=== PATIENT | male | born 1950 | race American Indian/Alaskan Native ===

== ENCOUNTER 2018-02-26 06:38 | Day surgery (SDC) | payer OTHER, BC ==
[2018-02-25 13:51] VITALS: BMI 28.2
[2018-02-26 08:41] VITALS: TEMP 97.8
[2018-02-26 09:12] VITALS: BP 126/71; PULSE 78
--- NOTE | 2018-02-27 16:45 | PATH ---
Surgical Pathology Report Patient Name: PALOMA NGO Med. Rec. #: [id number] /Age/Gender: 1950 (Age: 67) / M Account: [id number] Location: [facility] Taken: 02/26/2018 Received: 02/26/2018 Reported: 02/27/2018 Physicians: Meseret Rojas M.D. Specimen(s) Received BX RECTAL POLYPS Clinical History Preoperative diagnosis: Screening Postoperative diagnosis: Polyps Final Diagnosis COLON, RECTUM, BIOPSY: HYPERPLASTIC POLYP. Electronically Signed Phani Bajwa M.D. Gross Description Received in formalin, labeled "biopsy rectal polyps" are 3 ortega, irregular portions of soft tissue ranging from 0.2-0.3 cm. in greatest dimension. The specimens are submitted in toto in one cassette. 02/26/201802/26/2018
== END 2018-02-26 09:30 | disposition home or self-care (01) ==
LOC: JASU-ENDO 06:38
PROVIDERS: ATTEND Internal Medicine Gastroenterology
PROC: 0DBP8ZX Excision of Rectum, Via Natural or Artificial Opening Endoscopic, Diagnostic (ICD-10-PCS; principal; 2018-02-26 08:00)
DX: Z12.11 Encounter for screening for malignant neoplasm of colon (principal); K62.1 Rectal polyp; I10 Essential (primary) hypertension; E11.9 Type 2 diabetes mellitus without complications; J45.909 Unspecified asthma, uncomplicated
CPT/HCPCS: 88305-TC

== ENCOUNTER 2018-09-05 10:11 | Day surgery (SDC) | payer OTHER, BC ==
[2018-09-04 10:46] VITALS: BMI 27.4
--- NOTE | 2018-09-05 09:34 | HP ---
History & Physical Update - History History: No Change - Physical Physical: No Change - Assessment Assessment: No Change - Plan Plan: No Change (Mass in right arm for excision.)
[2018-09-05 11:00] VITALS: TEMP 97.5
[2018-09-05] MEDS ORDERED: LIDOCAINE HCL 1%, 10 MG/ML (20ML VIAL) ONE (11:48)
[2018-09-05] MEDS ORDERED: MIDAZOLAM HCL 2 MG/2 ML SINGLE DOSE VIAL ONE (11:59)
[2018-09-05] MEDS ORDERED: ceFAZolin SODIUM 1 GM VIAL ONE (12:21)
[2018-09-05] MEDS ORDERED: LIDOCAINE HCL 1%, 10 MG/ML (20ML VIAL) INF ONE (12:34)
[2018-09-05] MEDS ORDERED: oxyCODONE HCL 5 MG TABLET PO PRN (12:54)
[2018-09-05] MEDS ORDERED: ONDANSETRON 4 MG/2 ML VIAL IVPUSH PRN (12:54)
--- NOTE | 2018-09-05 12:54 | OP ---
Operative Note - Note: Operative Date: 09/05/18 Pre-Operative Diagnosis: Two pigmented skin lesions on right arm. Operation: Excision of 1) 4cm.x2cm pigmented skin lesion , right arm , lateral aspect,. 2) 3cm.x1cm skin lesion on medial aspect right arm. Findings: Pigmented skin lesion x2 , right arm. Post-Operative Diagnosis: Same as Pre-op Surgeon: Stephanie Pham Anesthesiologist/RADIO TELEVISION TECHNICAL DIRECTOR: Jesse Lyon Anesthesia: MAC Specimens Removed: Pigmented skin lesions,. 1) lateral aspect right arm , 4x3cm ,. 2) medial aspect right arm 3x2 cm. Estimated Blood Loss (mls): 5 Operative Report Dictated: Yes
[2018-09-05 15:16] VITALS: BP 117/80; PULSE 74
--- NOTE | 2018-09-06 07:37 | OP ---
DATE OF OPERATION: 09/05/2018 PREOPERATIVE DIAGNOSIS: Two pigmented skin lesions on the right arm. POSTOPERATIVE DIAGNOSIS: Two pigmented skin lesions on the right arm. OPERATIVE PROCEDURE: 1. Excision of 4 cm x 2 cm pigmented skin lesion of the right arm on its lateral aspect. 2. Excision of 3 cm x 1 cm skin lesion on medial aspect of the right arm. SURGEON: Katrin Pham MD ANESTHESIA: Local with monitored intravenous sedation. ANESTHESIOLOGIST: Jesse Lyon MD OPERATIVE DESCRIPTION: Patient had 2 pigmented skin lesions close to each other on the right arm. Site was marked, identified, while the patient was awake. The patient was given general anesthesia. The right arm was painted and draped. Time-out was called. Lidocaine 1% was injected into both the lesions and surrounding it. First the incision on the lateral side was excised by making an elliptical incision around the lesion about 4 cm in length x 2 cm in width with the adequate margin around the pigmented area. This was carried through the skin down to the subcutaneous tissue, excised, sent to Pathology. Hemostasis was achieved using electrocautery. The subdermal layer was approximated with interrupted 3-0 Vicryl sutures and skin approximated with continuous 4-0 Biosyn sutures in a running subcuticular fashion. Hemostasis was satisfactory. Specimen was labeled at the lateral margin and sent to Pathology. Next, the lesion medial to it was excised. Again after infiltrating lidocaine, an elliptical incision in longitudinal fashion was made about 3 cm in length and about 1 cm in width. This was carried again down through the skin to the subcutaneous fat, completely excised with adequate margin, and sent to Pathology. Hemostasis was again achieved using electrocautery. The dermal layer and subcutaneous tissues were approximately by interrupted 3-0 Vicryl sutures, and skin approximated with continuous 4-0 Biosyn sutures in a running subcuticular fashion. Benzoin was applied across the skin edges, and Steri- Strips were placed across the skin. An Opsite was applied. Patient tolerated the procedure well and was sent to the ambulatory suite in satisfactory and stable condition. Ever [id number] MTDD
--- NOTE | 2018-09-09 14:07 | PATH ---
Surgical Pathology Report Patient Name: PALOMA NGO [facility]. Rec. #: [id number] /Age/Gender: 1950 (Age: 68) / M Account: [id number] Location: [facility] SURGICAL Taken: 09/05/2018 Received: 09/05/2018 Reported: 09/09/2018 Physicians: Katrin Pham M.D. Specimen(s) Received A: RIGHT ARM LATERAL LESION B: RIGHT ARM MEDIAL LESION Clinical History Disorder of pigmentation right upper arm Final Diagnosis A. RIGHT ARM LATERAL LESION, EXCISION: SEGMENT OF SKIN WITH FOLLICULAR CYST, INFLAMED. B. RIGHT ARM MEDIAL LESION, EXCISION: SEGMENT OF SKIN WITH SEBORRHEIC KERATOSIS. Electronically Signed Lencho Carreno M.D. Gross Description A. Received in formalin labeled "right arm lateral lesion," is a 1.3 x 0.7 cm is a ortega, elliptical, unoriented portion of skin excised to depth of 0.6 cm. No discrete epidermal lesion is identified. The specimen is inked blue and serially sectioned. Sectioning reveals a brown, possible cystic structure. The specimen is entirely submitted in 2 cassettes as follows: 1-undesignated tips; 2-central portion of specimen. B. Received in formalin labeled "right arm medial lesion," is a 0.9 x 0.4 cm ortega-brown, elliptical, unoriented portion of skin excised to a depth of 0.6 cm. No discrete dermal lesion is identified. The specimen is inked blue and quadrasected. The specimen is entirely submitted in 2 cassettes as follows: 1-undesignated tips; 2-central portion of specimen. /09/05/2018 saudi09/05/2018
== END 2018-09-05 14:20 | disposition home or self-care (01) ==
LOC: JASU-SURG 10:11
PROVIDERS: ATTEND Specialist
PROC: 0HBHXZX Excision of Right Upper Leg Skin, External Approach, Diagnostic (ICD-10-PCS; 2018-09-05)
PROC: 0HQBXZZ Repair Right Upper Arm Skin, External Approach (ICD-10-PCS; principal; 2018-09-05 11:30)
DX: L81.9 Disorder of pigmentation, unspecified (principal); L72.9 Follicular cyst of the skin and subcutaneous tissue, unspecified; L82.1 Other seborrheic keratosis
CPT/HCPCS: 82962; 88304-TC; 88305-TC

== ENCOUNTER 2019-07-25 11:51 | Emergency (ER) | payer OTHER, BC ==
[2019-07-25 11:55] VITALS: BP 120/61; PULSE 85; TEMP 97.7; BMI 27.4
[2019-07-25] MEDS ORDERED: ACETAMINOPHEN 500 MG TABLET (FP) PO ONE (12:21)
[2019-07-25] MEDS ORDERED: ACETAMINOPHEN 500 MG TABLET (FP) ONE (12:22)
--- NOTE | 2019-07-25 12:24 | PDOC ---
History of Present Illness - General Chief Complaint: Pain Stated Complaint: RT FOOT PAIN Time Seen by Provider: 07/25/19 11:58 History Source: Patient Exam Limitations: No Limitations - History of Present Illness Initial Comments: 07/25/19 12:21 HISTORY OF PRESENT ILLNESS: This 69-year-old man past medical history of diabetes and hypertension who presents emergency department for evaluation of right ankle pain status post inversion injury which happened yesterday. Patient reports was walking on the stairs when his sneaker fell off causing him to miss a step and landed awkwardly on his right ankle. Reports inversion of the right foot and had swelling immediately upon the injury. Patient has been ambulatory on his ankle since the injury. Patient's been taking [id number] Advil with relief of pain. No recent travel or sick contacts. PAST MEDICAL HISTORY: see HPI SURGICAL HISTORY: Denies ALLERGIES: No known drug allergies REVIEW OF SYSTEMS General/Constitutional: Denies fever or chills. Denies weakness, weight change. HEENT: Denies change in vision. Denies ear pain or discharge. Denies sore throat. Cardiovascular: Denies chest pain or shortness of breath. Respiratory: Denies cough, wheezing, or hemoptysis. Gastrointestinal: Denies nausea, vomiting, diarrhea or constipation. Denies rectal bleeding. Genitourinary: Denies dysuria, frequency, or change in urination. Musculoskeletal: see HPI Skin and breasts: Denies rash or easy bruising. Neurologic: Denies headache, vertigo, loss of consciousness, or loss of sensation. Psychiatric: Denies depression or anxiety. Endocrine: Denies increased thirst. Denies abnormal weight change. Hematologic/Lymphatic: Denies anemia, easy bleeding, or history of blood clots. Allergic/Immunologic: Denies hives or skin allergy. Denies latex allergy. PHYSICAL EXAM General Appearance: Well-appearing, appropriately dressed. No apparent distress , no intoxication. Respiratory/Chest: Lungs CTAB. No shortness of breath, chest tenderness, respiratory distress, accessory muscle use. No crackles, rales, rhonchi, stridor , wheezing, dullness Cardiovascular: RRR. S1, S2. No JVD, murmur, bradycardia, tachycardia. Vascular Pulses: Dorsalis-Pedis (R): 2+, Dorsalis-Pedis (L): 2+ Musculoskeletal/Extremities: No bony tenderness, crepitus, deformity or step offs present to bones of the right lower leg and foot. Swelling present over the lateral malleolus of the right ankle. Full active range of motion with flexion and dorsiflexion of the right ankle. No sensory loss distal to injury. Capillary refill less than 2 seconds. Integumentary: Appropriate color, dry, warm. No cyanosis, erythema, jaundice or rash Neurologic: general cleaner II-XII intact. Fully oriented, alert. Appropriate mood/affect. Motor strength 5/5. No appreciable EOM palsy, facial droop or sensory deficit. Past History - Past Medical History Allergies/Adverse Reactions: Allergies Allergy/AdvReac Type Severity Reaction Status Date / Time No Known Drug Allergies Allergy Verified 07/25/19 11:54 Home Medications: Ambulatory Orders Lisinopril [Prinivil] 5 mg PO DAILY #7 tablet 11/03/12 Tadalafil [Cialis] 5 mg PO DAILY #7 11/03/12 Albuterol Sulfate [Proair Hfa -] 1 - 2 inh PO PRN PRN 12/09/15 Budesonide/Formeterol Fumarate [SYMBICORT 80/4.5mcg -] 1 inh PO BID 12/09/15 Fenofibrate Nanocrystallized [Tricor] 145 mg PO DAILY 12/09/15 [place]-3 Acid Ethyl Esters [Lovaza -] 2 gm PO BID 12/09/15 Montelukast Na [Singulair -] 10 mg PO HS 12/13/15 Tamsulosin HCl [Flomax -] 0.4 mg PO DAILY 12/13/15 Sitagliptin Phos/Metformin HCl [Janumet 50-1,000 mg Tablet] 1 tab PO BID Tiotropium [place] [Spiriva] 1 inh PO DAILY PRN 01/16/16 Atorvastatin Ca [Lipitor] 40 mg PO HS 09/04/18 metFORMIN HCL [Metformin HCl ER] 1,000 mg PO BID 09/04/18 Walker [Ultra-Light Rollator] 1 each MC PRN PRN 14 Days #1 each 07/25/19 Anemia: No Asthma: Yes Cancer: No Cardiac Disorders: No CVA: No COPD: No CHF: No Dementia: No Diabetes: Yes GI Disorders: Yes (DIVERTICULOSIS) Disorders: Yes (BPH) HTN: Yes Hypercholesterolemia: Yes Liver Disease: No Thyroid Disease: No - Surgical History Abdominal Surgery: No Appendectomy: No Cardiac Surgery: No Cholecystectomy: No Lung Surgery: No Orthopedic Surgery: No - Suicide/Smoking/Psychosocial Hx Smoking Status: No Smoking History: Never smoked Number of Cigarettes Smoked Daily: 0 Hx Alcohol Use: No Drug/Substance Use Hx: No Substance Use Type: None Hx Substance Use Treatment: No *Physical Exam - Vital Signs Last Vital Signs Temp Pulse Resp BP Pulse Ox 97.7 F 85 18 120/61 99 07/25/19 11:52 07/25/19 11:52 07/25/19 11:52 07/25/19 11:52 07/25/19 11:52 Procedures - Consent Consent obtained: Verbal, From Patient - Splinting Splint Location: Right: Ankle Pre-Proc Neuro Vasc Exam: normal Hand-Made Type: orthoglass Splint Type: Yes: Short Leg Post-Proc Neuro Vasc Exam: normal, unchanged from pre-exam Dain Bandage: 4" Sling: No Progress: 07/25/19 12:47 Patient tolerated well ED Treatment Course - RADIOLOGY Radiology Studies Ordered: Category Date Time Status ANKLE & FOOT-RIGHT* [RAD] Stat Radiology 07/25/19 12:21 Ordered Medical Decision Making - Medical Decision Making 07/25/19 12:24 A/P: Right ankle pain status post inversion of the foot which occurred yesterday afternoon Given physical exam this is likely a sprain the patient is requesting x-rays I will get an x-ray of the right ankle and foot. Tylenol 1 g orally Reassess 07/25/19 12:43 X-rays read by Dr. Cardona: Acute fracture distal fibula with lateral swelling. Correlation recommended. Splinting-see procedure note for details Discharge home with orthopedic follow-up. I discussed the physical exam findings, ancillary test results and final diagnoses with the patient. I answered all of the patient's questions. The patient was satisfied with the care received and felt comfortable with the discharge plan and treatment plan. The patient will call their primary care physician within 24 hours to arrange follow-up and will return to the Emergency Department with any new, persistent or worsening symptoms. Portions of this note have been documented using voice recognition software. As a result, errors may occur in the director mobile process. Effort has been made to correct all grammatical and director mobile error, but some may have been missed. *DC/Admit/Observation/Transfer Diagnosis at time of Disposition: Closed fracture of right distal fibula Qualifiers: Encounter type: initial encounter Fracture morphology: unspecified fracture morphology Qualified Code(s): S82.831A - Other fracture of upper and lower end of right fibula, initial encounter for closed fracture - Discharge Dispostion Disposition: HOME Condition at time of disposition: Stable Decision to Admit order: No - Prescriptions Prescriptions: Walker [Ultra-Light Rollator] 1 each MC PRN PRN 14 Days #1 each PRN Reason: Pain - Referrals Referrals: Jose Rafael Chacon MD [Primary Care Provider] - Neto Wisdom MD [Staff Physician] - - Patient Instructions Additional Instructions: Take Tylenol or Motrin as needed for pain. Follow manufacturers instructions for appropriate dosage. Apply ice for 20 minutes and removed for at least 20 minutes before reapplying the ice. Keep splint on your ankle. Whenever possible keep your foot elevated to decrease swelling to your ankle. You've been given the number for an orthopedist. If symptoms do not resolve within the next 7 days call the orthopedist for further evaluation. Return to emergency department for discoloration of the foot, numbness or tingling to the foot, worsening pain, or any other concerns. Thank you very much for choosing us to provide your emergent healthcare needs. - Post Discharge Activity
== END 2019-07-25 13:15 | disposition home or self-care (01) ==
LOC: JERFT 11:51
PROC: 2W3QX1Z Immobilization of Right Lower Leg using Splint (ICD-10-PCS; principal; 2019-07-25)
DX: S82.831A Other fracture of upper and lower end of right fibula, initial encounter for closed fracture (principal); W10.8XXA Fall (on) (from) other stairs and steps, initial encounter; Y93.89 Activity, other specified; Y92.018 Other place in single-family (private) house as the place of occurrence of the external cause; Y99.8 Other external cause status
CPT/HCPCS: 29345; 73610-TC-RT-FY; 73630-TC-RT-FY; 99281-25

== ENCOUNTER 2022-04-21 06:45 | Emergency (ER) | payer OTHER, BC ==
[2022-04-21 07:34] VITALS: BP 122/68; BMI 27.4
[2022-04-21] MEDS ORDERED: ACETAMINOPHEN 500 MG TABLET (FP) PO ONE (07:48)
[2022-04-21] MEDS ORDERED: BEBTELOVIMAB (EUA) 175 MG/2 ML VIAL IVPUSH ONE (10:01)
[2022-04-21 12:44] VITALS: PULSE 86; TEMP 97.8
== END 2022-04-21 12:45 | disposition home or self-care (01) ==
LOC: JER 06:45
PROC: 3E033NZ Introduction of Analgesics, Hypnotics, Sedatives into Peripheral Vein, Percutaneous Approach (ICD-10-PCS; principal; 2022-04-21)
DX: U07.1 COVID-19 (principal); R50.9 Fever, unspecified
CPT/HCPCS: 99284-25; C9803-CS; M0222; Q0222; U0003; U0005